=== PATIENT | male | born 1985 | race Caucasian/White ===

== ENCOUNTER → 2017-12-11 | Outpatient (CLI) | payer OTHER ==
--- NOTE | 2017-12-11 15:31 | DIAGNOSTIC IMAGING REPORT ---
LEFT FOURTH TOE 3 VIEWS CLINICAL HISTORY: Fourth toe injury. FINDINGS: 3 views of the left fourth toe are obtained. No prior studies are available for comparison at the time of dictation. The skeletal structures are well mineralized. There is a subtle nondistracted fracture through the proximal shaft of the fourth middle phalanx, only seen on the lateral projection. Overlying soft tissue edema is noted. No additional fracture is seen. The fourth metatarsophalangeal and interphalangeal joints appear preserved. IMPRESSION: There is a subtle nondistracted fracture through the proximal shaft of the fourth middle phalanx with overlying soft tissue edema. Electronically signed by: Chiki Martinez M.D. 12/11/2017 3:30 PM Dictated Date/Time: 12/11/2017 3:28 PM
== END | disposition home or self-care (01) ==
LOC: C.RAD1850 14:57
PROVIDERS: ATTEND Nurse Practitioner Adult Health
DX: S92.515A Nondisplaced fracture of proximal phalanx of left lesser toe(s), initial encounter for closed fracture (principal); X58.XXXA Exposure to other specified factors, initial encounter